=== PATIENT | male | born 1990 | race Caucasian/White ===

== ENCOUNTER 2016-11-29 19:07 | Emergency (ER) | payer OTHER ==
[2016-11-29] MEDS ORDERED: levETIRAcetam IV* 500 MG/5 ML VIAL ONE (19:56)
[2016-11-29 20:03] LABS: Hematocrit 40 % (42-52); Hemoglobin 13.5 g/dl (14.0-18.0); Mean Corpuscular HGB Conc 34 g/dl (31-36); Mean Corpuscular Hemoglobin 30 pg (27-31); Mean Corpuscular Volume 88 fL (80-94); Mean Platelet Volume 9 um3 (7.4-10.4); Red Blood Count 4.53 10^6/ul (4.0-5.4); Red Cell Distribution Width 12 % (10.5-15); White Blood Count 13.2 10^3/ul (3.5-10.8)
[2016-11-29 20:16] LABS: Albumin 4.2 g/dL (3.2-5.2); BUN/Creatinine Ratio 9.1 (8-20); Calcium 9.1 mg/dL (8.6-10.3); EGFR African American 116.6 (>60); EGFR Non-African American 90.7 (>60); Globulin 2.9 g/dL (2-4); Potassium 3.6 mmol/L (3.5-5.0); Total Bilirubin 0.4 mg/dL (0.2-1.0); Total Protein 7.1 g/dL (6.4-8.9)
--- NOTE | 2016-11-29 20:32 | ED ---
I, Oh,Obed, scribed for Jraret Willams MD on 11/29/16 at 1945 . Neurological HPI - HPI Summary HPI Summary: This 26 y/o male presents to ED for seizure episode that occurred an hour ago. Pt reports drooling and AMS noted by people around him at scene. 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 Blood glucose en route was noted as 135. He is currently at his baseline and A&O, answering oriented questions without problems. 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 PMHx is positive for known seizure. Last seizure was 2.5 months ago. Pt admits to having been noncompliance to seizure medication, and is not able to recall the name of the meds. Last time he was checked up [facility]. - History of Current Complaint Chief Complaint: EDSeizure Stated Complaint: SEIZURE Time Seen by Provider: 11/29/16 19:33 Hx Obtained From: Patient, EMS, Medical Records Onset/Duration: Sudden Onset, Started hours ago, Resolved Timing: Intermittent Episodes Lasting: Neurological Deficit Location: Generalized Pain Intensity: 0 Pain Scale Used: 0-10 Numeric Character: Other: - drooling, AMS, N/v - Allergy/Home Medications Allergies/Adverse Reactions: Allergies Allergy/AdvReac Type Severity Reaction Status Date / Time No Known Allergies Allergy Verified 05/08/15 11:49 PMH/Surg Hx/FS Hx/Imm Hx Endocrine/Hematology History: Denies: Hx Diabetes Cardiovascular History: Denies: Hx Hypertension, Hx Pacemaker/ICD Sensory History: Denies: Hx Hearing Aid Neurological History: Reports: Hx Seizures Psychiatric History: Denies: Hx Panic Disorder Infectious Disease History: No Infectious Disease History: Denies: Traveled Outside the [place] in Last 30 Days - Family History Known Family History: Negative: Cardiac Disease - Social History Alcohol Use: Weekly Substance Use Type: Reports: None Hx Tobacco Use: Yes Smoking Status (MU): Light Every Day Tobacco Smoker Review of Systems Negative: Fever Positive: Vomiting, Nausea Neurological: Other - Positive for seizure x1, currently resolved All Other Systems Reviewed And Are Negative: Yes Physical Exam Triage Information Reviewed: Yes Vital Signs On Initial Exam: Initial Vitals Temp Pulse Resp BP 98 F 109 18 129/90 11/29/16 19:26 11/29/16 19:26 11/29/16 19:26 11/29/16 19:26 Vital Signs Reviewed: Yes Appearance: Positive: Well-Appearing, No Pain Distress Skin: Positive: Warm Head/Face: Positive: Normal Head/Face Inspection Eyes: Positive: EOMI, [place] ENT: Positive: Hearing grossly normal Neck: Positive: Supple Respiratory/Lung Sounds: Positive: Clear to Auscultation, Breath Sounds Present Cardiovascular: Positive: RRR Abdomen Description: Positive: Nontender, Soft Bowel Sounds: Positive: Present Musculoskeletal: Positive: Strength/ROM Intact Neurological: Positive: Sensory/Motor Intact, Alert, Oriented to Person Place, Time, CN Intact II-III, Normal Gait Psychiatric: Positive: Affect/Mood Appropriate - [place] Coma Scale Coma Scale Total: 15 Diagnostics - Vital Signs Vital Signs Temp Pulse Resp BP Pulse Ox 11/29/16 19:27 98 F 104 16 130/73 97 11/29/16 19:26 98 F 109 18 129/90 - Laboratory Lab Results: Lab Results 11/29/16 11/29/16 Range/Units 19:50 19:50 WBC 13.2 H (3.5-10.8) 10^3/ul RBC 4.53 (4.0-5.4) 10^6/ul Hgb 13.5 L (14.0-18.0) g/dl Hct 40 L (42-52) % MCV 88 (80-94) fL MCH 30 (27-31) pg MCHC 34 (31-36) g/dl RDW 12 (10.5-15) % Plt Count 235 (150-450) 10^3/ul MPV 9 (7.4-10.4) um3 Neut % (Auto) 71.3 (38-83) % Lymph % (Auto) 17.2 L (25-47) % [place] % (Auto) 9.6 H (1-9) % Eos % (Auto) 1.7 (0-6) % Baso % (Auto) 0.2 (0-2) % Absolute Neuts (auto) 9.4 H (1.5-7.7) 10^3/ul Absolute Lymphs (auto) 2.3 (1.0-4.8) 10^3/ul Absolute Monos (auto) 1.3 H (0-0.8) 10^3/ul Absolute Eos (auto) 0.2 (0-0.6) 10^3/ul Absolute Basos (auto) 0 (0-0.2) 10^3/ul Absolute Nucleated RBC 0.01 10^3/ul Nucleated RBC % 0.1 Sodium 136 (133-145) mmol/L Potassium 3.6 (3.5-5.0) mmol/L Chloride 102 (101-111) mmol/L Carbon Dioxide 25 (22-32) mmol/L Anion Gap 9 (2-11) mmol/L BUN 9 (6-24) mg/dL Creatinine 0.99 (0.67-1.17) mg/dL Est GFR ( Amer) 116.6 (>60) Est GFR (Non-Af Amer) 90.7 (>60) BUN/Creatinine Ratio 9.1 (8-20) Glucose 95 (70-100) mg/dL Calcium 9.1 (8.6-10.3) mg/dL Total Bilirubin 0.40 (0.2-1.0) mg/dL AST 21 (13-39) U/L ALT 22 (7-52) U/L Alkaline Phosphatase 60 (34-104) U/L Total Protein 7.1 (6.4-8.9) g/dL Albumin 4.2 (3.2-5.2) g/dL Globulin 2.9 (2-4) g/dL Albumin/Globulin Ratio 1.4 (1-3) Result Diagrams: 11/29/16 19:50 11/29/16 19:50 Lab Statement: Any lab studies that have been ordered have been reviewed, and results considered in the medical decision making process. Re-Evaluation - Re-Evaluation First Eval Change: Improved - no further szs, will restart pt on keppra Course/Dx - Course Assessment/Plan: This 26 y/o male presents to ED for acute on recurrent seizure since 1-1.5 hours ago. Seizure episode is currently resolved, and A&O at time of initila evaluation. Pt reports having noncompliance with his unspecified seizure medications stating that "it was a personal choice". Last seizure episode was 2.5 months ago, and pt's last check up with primary care doc at [facility] was a year ago. Bloodwork is wnl except for elevated WBC of 13.2. Pt remained unsymptomatic during ED course, and he is discharged with referral to neurologist. - Diagnoses Provider Diagnoses: Seizure Discharge - Discharge Plan Condition: Improved Disposition: HOME Prescriptions: Levetiracetam [Keppra 500] 500 mg PO BID #30 tab Patient Education Materials: Recurrent Seizures in Adults (ED), Levetiracetam ( By mouth) Referrals: Sita Amador MD [Medical Doctor] - 2 Days The documentation as recorded by the Alfie velasco Soohyun accurately reflects the service I personally performed and the decisions made by me, Jarret Willams MD.
[2016-11-29 20:43] VITALS: BP 120/74
== END 2016-11-29 20:38 | disposition home or self-care (01) ==
LOC: ED 19:07
DX: R56.9 Unspecified convulsions (principal); R11.2 Nausea with vomiting, unspecified; F17.210 Nicotine dependence, cigarettes, uncomplicated
CPT/HCPCS: 36415; 80053; 83605; 85025; 96374; 99283